=== PATIENT | male | born 1925 | race Caucasian/White ===

== ENCOUNTER 2017-01-07 14:50 | Emergency (ER) | payer OTHER ==
[~2017-01-07] VITALS: Ht 162.6 cm; Wt 62.9 kg
[~2017-01-07 14:50] MED LIST: AMLO-110 PO; ASPEC81 PO; CLC150 PO; CLTP PO; CMD2 PO; INSDGI SC; LCTX PO; METO25TA56 PO; PANT40TA PO; PRED-301 PO; SIMV40TA2 PO
[2017-01-07 15:00] VITALS: O2SAT 96; Ht 162.6 cm; Wt 62.9 kg
[2017-01-07 15:13] LABS: COMPLETE YES; EOS % 0.1 %; HEMATOCRIT 37.1 % (42-52); IG% 0.3 %; LYMPH % 4.8 %; LYMPH ABS # 0.75 K/uL (1.2-3.4); MEAN CELL VOLUME 95.4 fL (80-100); MEAN CORPUSCULAR HEMOGLOBIN 31.9 pg (25-34); MEAN CORPUSCULAR HGB CONC 33.4 g/dl (32-36); MEAN PLATELET VOLUME 11.2 fL (7.4-10.4); MONO % 3.8 %; PLATELET COUNT 283 K/uL (130-400); RED BLOOD COUNT 3.89 M/uL (4.7-6.1); WHITE BLOOD COUNT 15.64 K/uL (4.8-10.8)
[2017-01-07 15:21] LABS: PROTHROMBIN TIME (PATIENT) 10.6 SECONDS (9.0-12.0)
--- NOTE | 2017-01-07 15:28 | DIAGNOSTIC IMAGING REPORT ---
SINGLE VIEW CHEST CLINICAL HISTORY: Dyspnea. FINDINGS: An AP, portable, upright chest radiograph is compared to study dated 05/10/2009. The examination is degraded by portable technique and patient rotation. A 2-lead cardiac pacemaker partially obscures the left upper chest. This is new from 2008. A stent projects over the heart. The heart is enlarged and there is atherosclerotic calcification of the thoracic aorta. The pulmonary vasculature is noncongested. Chronic interstitial thickening is similar to previous. No airspace consolidation or large pleural effusion is identified. No pneumothorax is seen. The skeletal structures are osteopenic. Degenerative change is noted throughout the thoracic spine. Surgical clips project over the right axilla. IMPRESSION: 1. Cardiomegaly and cardiac pacemaker. There is no radiographic evidence of congestive failure. 2. No airspace consolidation or pleural effusion is seen. Electronically signed by: Rashel Mei M.D. 01/07/2017 3:27 PM Dictated Date/Time: 01/07/2017 3:25 PM
[2017-01-07 15:32] LABS: BUN/CREATININE RATIO 30.7 (10-20); CREATININE 0.87 mg/dl (0.60-1.40); POTASSIUM 4.5 mmol/L (3.5-5.1)
[2017-01-07 15:41] LABS: ALB/GLOB RATIO 0.8 (0.9-2); CKMB/CK RATIO 2.9 (0-3.0)
[2017-01-07] MEDS ORDERED: AMOX875T PO (16:16)
[2017-01-07] MEDS ORDERED: METF500T5 PO (16:16)
[2017-01-07] MEDS ORDERED: LISI40TA PO (16:16)
[2017-01-07] MEDS ORDERED: AMLO-114 PO (16:16)
[2017-01-07] MEDS ORDERED: ASPI325T39 PO (16:16)
[2017-01-07] MEDS ORDERED: HYDR12.55 PO (16:16)
[2017-01-07] MEDS ORDERED: METO25TA56 PO (16:16)
[2017-01-07] MEDS ORDERED: ATOR-22 PO (16:16)
[2017-01-07] MEDS ORDERED: NF656 TD (16:16)
[2017-01-07] MEDS ORDERED: OPTIRAY 320 IV PRN (17:15)
[2017-01-07] MEDS ORDERED: CEFTRIAXONE SOD INJ 1 GM ADDVIAL IV STA (17:55)
--- NOTE | 2017-01-07 18:01 | DIAGNOSTIC IMAGING REPORT ---
ADDENDUM ADDENDUM: The case was subsequently discussed with the admitting hospitalist. The patient's left carotid endarterectomy was reportedly performed 4 days previously, not one month ago as initially reported. The inflammatory changes and gas within the left neck are likely related to recent surgery. Superimposed infection would be impossible to exclude and clinical correlation will be required. All remaining findings are unchanged. Electronically signed by: Rashel Mei M.D. 01/07/2017 8:47 PM Dictated Date/Time: 01/07/2017 8:[address] ANGIOGRAM OF THE CHEST CLINICAL HISTORY: Dyspnea. COMPARISON STUDY: Chest x-ray dated 01/07/2017. TECHNIQUE: Following the IV administration of 75 cc of Optiray 320, CT angiogram of the chest was performed from the upper abdomen to the thoracic inlet utilizing the pulmonary embolus protocol. Images are reviewed in the axial, sagittal, and coronal planes. 3-D MIPS images are created and assessed. IV contrast was administered without complication. The examination is degraded by streak artifact from the patient's arms which could not be elevated above the chest as well as by motion artifact. CT DOSE: 316.14 mGy.cm FINDINGS: Thyroid: Imaged portions of the thyroid gland are normal in size and attenuation. Thoracic aorta: A stent is present within the ascending thoracic aorta and appear to cross the aortic valve. There is atherosclerotic calcification of the thoracic aorta, which is normal in caliber and demonstrates standard 3-vessel arch anatomy. No dissection is seen. Pulmonary vasculature: The pulmonary trunk is normal in caliber. There are no filling defects identified in main, lobar, or segmental pulmonary branches to suggest pulmonary embolus. Heart: A 2-lead cardiac pacemaker is present in the left chest wall. The heart is enlarged and without pericardial effusion. The coronary arteries are densely calcified. Lungs and pleural spaces: There is biapical scarring. Dependent airspace consolidation is seen bilaterally, left greater than right. No pleural effusion is seen. Peribronchial thickening is noted in the lower lobes. Intraluminal secretions are present within the lower lobe airways. A 3 mm right lower lobe pulmonary nodule is seen on image #128. Mediastinum: There is no mediastinal lymphadenopathy. There are small calcification containing mediastinal lymph nodes. Small foci of gas are present within the anterior mediastinum. Barbara: Clear. Axillae: There is no axillary lymphadenopathy. Lower neck: There is infiltration of the deep soft tissues identified in the left lower neck which extends to the thoracic inlet. There are numerous foci of subcutaneous gas in this region. This appears to be centered around the carotid artery and jugular vein. There is also stranding around the visualized pharyngeal soft tissues. No organized fluid collection is seen. Upper abdomen: There is a tiny hiatal hernia. Partially visualized upper abdominal viscera is otherwise within normal limits. Skeletal structures: The skeletal structures are osteopenic. Degenerative changes noted throughout the thoracic spine. No lytic or blastic bony lesions are seen. IMPRESSION: 1. There is no evidence of pulmonary embolus in the main, lobar, or segmental pulmonary arteries. 2. Cardiomegaly. A stent is present in the ascending thoracic aorta and appears to cross the aortic valve. Correlation with the patient's surgical/cardiac history will be required. 3. There is bibasilar dependent airspace consolidation this could represent atelectasis, developing pneumonia, and/or aspiration pneumonitis. Aspiration pneumonitis is favored. Clinical correlation will be required. 4. There is infiltration of the deep soft tissues in the left neck with foci of subcutaneous gas. Inflammation also extends around the visualized pharyngeal soft tissues comments, and appears to be centered around the left internal jugular vein and the left internal carotid artery. The patient reportedly underwent carotid endarterectomy one month previously. Subcutaneous gas would be expected to have resolved after one months time, and although this could potentially represent postoperative change the findings are concerning for soft tissue infection of the neck. No organized fluid collection is clearly seen. Clinical correlation will be essential. 5. Cardiomegaly and cardiac pacemaker. 6. No pleural effusion is seen. 7. Additional findings as above. Findings were discussed with Dr. Garcia in the emergency department at the time of interpretation. Electronically signed by: Rashel Mei M.D. 01/07/2017 5:59 PM Dictated Date/Time: 01/07/2017 5:42 PM
[2017-01-07 18:08] LABS: URINE APPEARANCE CLEAR (CLEAR); URINE BILIRUBIN NEG (NEG); URINE COLOR YELLOW; URINE EPITHELIAL CELL AUTO >30 /lpf (0-5); URINE NITRITE NEG (NEG); URINE SPECIFIC GRAVITY 1.028 (1.000-1.030); UROBILINOGEN NEG (NEG)
[2017-01-07 18:13] LABS: MANUAL MICROSCOPIC REQUIRED? NO; REVIEW REQ? YES
--- NOTE | 2017-01-07 18:19 | DIAGNOSTIC IMAGING REPORT ---
KUB CLINICAL HISTORY: Constipation. FINDINGS: 2 AP supine abdominal radiographs are obtained. No prior studies are available for comparison at the time of dictation. There is a nonobstructed abdominal bowel gas pattern. There is severe constipation. No evidence of intraperitoneal free air is seen on these supine views. Excreted IV contrast fills the bladder. Pelvic phleboliths are noted. The skeletal structures are osteopenic. There is lumbosacral spondylosis. The bony pelvis appears intact. Arthritic change is noted in the hips. Cardiomegaly, pacemaker leads, and an aortic stent are noted in the lower chest. IMPRESSION: Severe constipation. Electronically signed by: Rashel Mei M.D. 01/07/2017 6:17 PM Dictated Date/Time: 01/07/2017 6:16 PM
[2017-01-07] MEDS ORDERED: ONDANSETRON INJ 2 MG/ML 2 ML VIAL IV PRN (19:45)
[2017-01-07] MEDS ORDERED: ACETAMINOPHEN 325 MG TAB PO PRN (19:45)
--- NOTE | 2017-01-07 20:16 | Progress Note ---
Progress Note Date of Service January 07, 2017. Progress Note ATTENDING ADDENDUM care coordinated with MARICARMEN Munson please refer to her notes for full details, I agree with her notes patient seen and examined, records reviewed by myself as well on exam, patient seen with daughters at bedside patient alert, oriented x 3, appears weak but comfortable overall denies active shortness of breath, chest pain has some pain on the left neck worse with movement noted to have low grade fever at [facility] 01/06/17, WBC 17k daughter report area of the incision site is more swollen and erythema is expanding no other symptoms VS noted and reviewed oriented x 3, not in distress, speaks in sentences with no effort nor accessory muscle use normal rate, regular rhythm, no murmurs mild rales bilateral bases non distended, soft, nontender no bipedal edema, erythema, warmth right sided weakness WBC 15k Crea 0.8 CT chest: no PE discussed with Radiologist Dr. Mei: soft tissue infiltration with gas around L Carotid Artery, cannot distinguish between infection vs. post op inflammation ASSESSMENT/PLAN> POSSIBLE INFECTION OF THE LEFT NECK S/P LEFT CEA - due to clinical and CT neck findings, recommend evaluation at [facility] for possible post op site infection - Vanc and Zosyn IV ordered - discussed with patient and family, they are agreeable and comfortable with transfer to [place] BILATERAL PNEUMONIA possible Aspirin Vanc + Zosyn IV ordered other diagnoses and plan of care as per MARICARMEN Munson's notes Felix Patricio MD
[2017-01-07] MEDS ORDERED: VANCOMYCIN INJ 1,500 MG in SODIUM CHLORIDE 0.9% 500ML 500 ML IV STA (20:17)
[2017-01-07] MEDS ORDERED: PIPERACILLIN/TAZOBACTAM 4.5 GM/100ML D5W IV STA (20:20)
[2017-01-07] MEDS ORDERED: VANCOMYCIN CONSULT ACTIVE SCH (20:23)
[2017-01-07] MEDS ORDERED: PIPERACILL/TAZOBAC CONSULT ACTIVE SCH (20:23)
--- NOTE | 2017-01-07 20:44 | Medical Consult ---
Consultation Date of Consultation: January 07, 2017. Attending Physician: Dr. 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 Patient underwent left carotid endarterectomy on 01/03/17 at [facility]. Daughter states the following day patient had SOB/ wheezing and developed a cough nonproductive. Patient resides at [facility] where he developed a fever of 100.4 two nights ago. He was seen by Myriam Barnett PA-C yesterday and started on Augmentin. Today patient was brought to the ER for shortness of breath. Since the surgery patient has been transferred via lift to prevent straining on the L side given his R sided weakness. Daughter states erythema and swelling on left neck has been increasing. Has pain in the left neck if he turns his head. Patient was nauseous and vomiting yesterday and today. Daughter states he has aspirated on liquids in the past, no known episode occurred in past few days. He f/w speech therapy and is on regular diet with thin liquids. Patient reports no BM for 5-6 days with associated diffuse abdominal pressure. Was given milk of magnesia, dulcolax suppository, and fleet enema yesterday with minimal stool. He is passing gas. Pt reports sacral area pain x 2 weeks after falling. Daughter states he had an X-ray at [facility] after the fall which was negative. He denies fatigue, rhinorrhea, sore throat, chest pain, dysuria, frequency. Patient is requiring oxygen 2-2.5 L NC in ER. Not on oxygen at SNF. Past Medical/Surgical History Medical Problems: (1) CAD (coronary artery disease) Permanent Comment: Cath 05/2016- The coronary arteries have diffuse minor irregularities Status: Chronic (2) Carotid stenosis Status: Chronic (3) DM type 2 (diabetes mellitus, type 2) Status: Chronic (4) Dyslipidemia Status: Chronic (5) HTN (hypertension) Status: Chronic (6) Hyperlipidemia Status: Chronic (7) PMR (polymyalgia rheumatica) Status: Chronic (8) Right hemiplegia Status: Chronic (9) Skin cancer Status: Chronic Surgical Problems: (1) S/P carotid endarterectomy Permanent Comment: 01/03/17 Status: Chronic (2) S/P placement of cardiac pacemaker Status: Chronic (3) S/P TAVR (transcatheter aortic valve replacement) Status: Chronic (4) Status post Mohs surgery Status: Chronic Family History Noncontributory due to age. Social History Smoking Status: Former Smoker (quit 40 years ago) Alcohol Use: none Housing Status: retirement ([facility]) Allergies Coded Allergies: No Known Allergies (Verified , NONE, 01/07/17) Home Medications Reported Home Medications Medications Dose Route/Sig Max Daily Dose Days Date Category Dose Instructions Lopressor (Metoprolol Tartrate) 25 Mg Tab 25 Mg PO BID 01/07/17 Reported [id number] Glucophage Er (Metformin HCl) 500 Mg Tab 500 Mg PO BID 01/07/17 Reported [id number] Zestril (Lisinopril) 40 Mg Tab 40 Mg PO QAM 01/07/17 Reported Lidoderm Patch 5% (Lidocaine) 1 Ea Tdsy 1 Patch TD QAM 01/07/17 Reported APPLY PATCH TO RIGHT SIDE AND LEFT SIDE 0800 Hydrochlorothiazide 12.5 Mg Tab 1 Tab PO QAM 01/07/17 Reported Augmentin 875-125 mg (Amoxicillin & Pot Clavulanate) 1 Tab Tab 1 Tab PO BID 01/07/17 Reported [id number]. 01-06-17. ENDS 01-16-17 Lipitor (Atorvastatin Calcium) 20 Mg Tab 4 Tab PO HS 01/07/17 Reported Aspirin Ec (Aspirin) 325 Mg Tab 325 Mg PO QAM 01/07/17 Reported Norvasc (Amlodipine Besylate) 10 Mg Tab 10 Mg PO QAM 01/07/17 Reported Current Inpatient Medications Current Inpatient Medications Medications (Trade) Dose Ordered Sig/Xenia Route Start Time Stop Time Status Last Admin Dose Admin Ioversol (Optiray 320) 100 ml UD PRN IV 01/07/17 17:15 01/11/17 17:14 Heparin Sodium (Porcine) (Heparin Sq 5000 Unit/0.5ml) 5,000 unit Q12 SQ 01/07/17 21:00 02/06/17 20:59 UNV Acetaminophen (Tylenol Tab) 650 mg Q4H PRN PO 01/07/17 19:45 02/06/17 19:44 UNV Ondansetron HCl (Zofran Inj) 4 mg Q6H PRN IV 01/07/17 19:45 02/06/17 19:44 UNV Miscellaneous Information (Pharmacy Consult) 1 ea NOW STAT N/A 01/07/17 19:58 01/07/17 19:59 UNV Miscellaneous Information (Pharmacy Consult) 1 ea NOW STAT N/A 01/07/17 19:58 01/07/17 19:59 UNV Review of Systems Ten systems reviewed and negative except as noted in HPI. Physical Exam Date Time Temp Pulse Resp B/P Pulse Ox O2 Delivery O2 Flow Rate FiO2 01/07/17 18:54 36.9 78 16 134/68 94 Nasal Cannula 2.0 01/07/17 17:20 72 16 153/80 94 Nasal Cannula 2.0 01/07/17 16:11 74 16 130/77 95 Nasal Cannula 2.0 01/07/17 15:00 96 Nasal Cannula 2.0 01/07/17 15:00 85 01/07/17 15:00 90 Room Air 01/07/17 15:00 96 Nasal Cannula 2.0 01/07/17 15:00 36.9 78 16 152/84 90 Room Air General Appearance: WD/WN, no apparent distress, + pertinent finding (alert elderly male, daughters at bedside) Head: normocephalic, atraumatic Eyes: normal inspection, PERRL, EOMI ENT: pharynx normal, + pertinent finding (hard of hearing) Neck: trachea midline, + pertinent finding (erythema, induration, swelling left neck medial to surgical incision.) Respiratory/Chest: no respiratory distress, no accessory muscle use, + crackles (right base), + pertinent finding (saturating 90% on 2.5 liters) Cardiovascular: regular rate, rhythm, no murmur Abdomen/GI: normal bowel sounds, non tender, soft Back: + pertinent finding (no tenderness on palpation of lumbar or sacral areas ) Extremities/Musculoskelatal: no calf tenderness, no pedal edema Neurologic/Psych: alert, normal mood/affect, oriented x 3, + pertinent finding (chronic right arm flaccid paralysis and right leg weakness from prior CVA- no change per daughter) Skin: + pertinent finding ( scattered ecchymosis on extremities. two tiny stage II ulcerations on buttocks. ) Laboratory Results Last 24 Hours Test 01/07/17 14:32 01/07/17 17:50 01/07/17 20:00 White Blood Count 15.64 K/uL Red Blood Count 3.89 M/uL Hemoglobin 12.4 g/dL Hematocrit 37.1 % Mean Corpuscular Volume 95.4 fL Mean Corpuscular Hemoglobin 31.9 pg Mean Corpuscular Hemoglobin Concent 33.4 g/dl Platelet Count 283 K/uL Mean Platelet Volume 11.2 fL Neutrophils (%) (Auto) 91.0 % Lymphocytes (%) (Auto) 4.8 % Monocytes (%) (Auto) 3.8 % Eosinophils (%) (Auto) 0.1 % Basophils (%) (Auto) 0.0 % Neutrophils # (Auto) 14.22 K/uL Lymphocytes # (Auto) 0.75 K/uL Monocytes # (Auto) 0.60 K/uL Eosinophils # (Auto) 0.02 K/uL Basophils # (Auto) 0.00 K/uL RDW Standard Deviation 49.5 fL RDW Coefficient of Variation 14.2 % Immature Granulocyte % (Auto) 0.3 % Immature Granulocyte # (Auto) 0.05 K/uL Prothrombin Time 10.6 SECONDS Prothromb Time International Ratio 1.0 Activated Partial Thromboplast Time 25.4 SECONDS Partial Thromboplastin Ratio 1.0 Sodium Level 140 mmol/L Potassium Level 4.5 mmol/L Chloride Level 100 mmol/L Carbon Dioxide Level 30 mmol/L Anion Gap 10.0 mmol/L Blood Urea Nitrogen 27 mg/dl Creatinine 0.87 mg/dl Est Creatinine Clear Calc Drug Dose 48.2 ml/min Estimated GFR () 88.7 Estimated GFR (Non- 76.5 BUN/Creatinine Ratio 30.7 Random Glucose 159 mg/dl Calcium Level 9.0 mg/dl Total Bilirubin 0.5 mg/dl Aspartate Amino Transf (AST/SGOT) 29 U/L Alanine Aminotransferase (ALT/SGPT) 24 U/L Alkaline Phosphatase 91 U/L Total Creatine Kinase 79 U/L Creatine Kinase MB 2.3 ng/ml Creatine Kinase MB Ratio 2.9 Troponin I 0.095 ng/ml Pro-B-Type Natriuretic Peptide 628 pg/ml Total Protein 6.4 gm/dl Albumin 2.8 gm/dl Globulin 3.6 gm/dl Albumin/Globulin Ratio 0.8 Urine Color YELLOW Urine Appearance CLEAR Urine pH 6.0 Urine Specific [place] 1.028 Urine Protein NEG Urine Glucose (UA) NEG Urine Ketones NEG Urine Occult Blood NEG Urine Nitrite NEG Urine Bilirubin NEG Urine Urobilinogen NEG Urine Leukocyte Esterase SMALL Urine WBC (Auto) 5-10 /hpf Urine RBC (Auto) 0-4 /hpf Urine Hyaline Casts (Auto) 1-5 /lpf Urine Epithelial Cells (Auto) >30 /lpf Urine Bacteria (Auto) 1+ Assessment & Plan ? LEFT NECK CELLULITIS/ POSTOP INFECTION S/[place] [facility] neck shows left neck infiltration of deep soft tissues with subcutaneous gas concerning for soft tissue infection Will give dose of IV Vancomycin and Zosyn Patient will be transferred to [facility] BILATERAL PNEUMONIA HCAP VS. possible aspiration Requiring oxygen 2-2.5 L NC; not on O2 at SNF Will give dose of Vancomycin and Zosyn NPO; recommend speech evaluation Patient is DNR per my discussion with the patient and his daughter Mignon Ahuja who is POA at bedside. Further recommendations as per [place] team [place] [facility] Patient seen in collaboration with Dr. Patricio. Please see his addendum.
[2017-01-07 20:58] LABS: CKMB/CK RATIO 2.6 (0-3.0)
[2017-01-07] MEDS ORDERED: HEPARIN SOD 5000 UNIT/0.5 ML CARP SQ SCH (21:00)
[2017-01-07 22:40] VITALS: TEMP 36.9
[2017-01-07] MEDS ORDERED: PIPERACILLIN/TAZOBACTAM 4.5 GM/100ML D5W ONE (23:24)
[2017-01-07 23:26] VITALS: BP 137/78; PULSE 81; O2SAT 96
--- NOTE | 2017-01-07 23:36 | EMERGENCY ROOM VISIT NOTE ---
History Report prepared by Hansel: Rubi Benites Under the Supervision of: Dr. Leonardo Garcia D.O. First contact with patient: 14:51 Stated Complaint: SHORTNESS OF BREATH History of Present Illness The patient is an 89 year old male who presents to the Emergency Room with complaints of an episode of being short of breath just prior to arrival. The patient states that he is experiencing weakness, coughing, vomiting and a fever. He denies coughing up any substances. The patient reports that he was at [facility] last week for a cardiac pacemaker placement and his carotid artery being cleaned out. He reports that he currently is at [facility] for rehab. The patient denies chest pain, leg swelling, and leg pain. He notes that he started a new medication yesterday. The patient also reports a history of a stroke. Source of History: patient Onset: prior to arrival Position: other (global) Quality: other (global) Timing: other (episode) Associated Symptoms: + cough, + fevers, + vomiting, + weakness, No chest pain Note: The patient denies leg swelling, leg pain, and coughing any substances up. Review of Systems See HPI for pertinent positives & negatives. A total of 10 systems reviewed and were otherwise negative. Past Medical & Surgical Medical Problems: (1) CAD (coronary artery disease) (2) Carotid stenosis (3) DM type 2 (diabetes mellitus, type 2) (4) Dyslipidemia (5) HTN (hypertension) (6) Hyperlipidemia (7) Hypoxia (8) PMR (polymyalgia rheumatica) (9) Pneumonia (10) Right hemiplegia (11) Skin cancer (12) Stroke Surgical Problems: (1) History of endarterectomy (2) S/P carotid endarterectomy (3) S/P placement of cardiac pacemaker (4) S/P TAVR (transcatheter aortic valve replacement) (5) Status post Mohs surgery Family History No pertinent family history Social History Smoking Status: Former Smoker Marital Status: Housing Status: lives with family Occupation Status: retired Current/Historical Medications Scheduled Amlodipine (Norvasc), 10 MG PO QAM Amoxicillin & Pot Clavulanate (Augmentin 875-125 mg), 1 TAB PO BID Aspirin (Aspirin Ec), 325 MG PO QAM Atorvastatin (Lipitor), 4 TAB PO HS Hydrochlorothiazide (Hydrochlorothiazide), 1 TAB PO QAM Lidocaine (Lidoderm Patch 5%), 1 PATCH TD QAM Lisinopril (Zestril), 40 MG PO QAM Metformin Hcl Er (Glucophage Er), 500 MG PO BID Metoprolol Tartrate (Lopressor) (Lopressor), 25 MG PO BID Allergies Coded Allergies: No Known Allergies (Verified , NONE, 01/07/17) Physical Exam Vital Signs Date Time Temp Pulse Resp B/P Pulse Ox O2 Delivery O2 Flow Rate FiO2 01/07/17 23:26 81 16 137/78 96 Nasal Cannula 3.0 01/07/17 22:40 36.9 74 16 140/69 95 Nasal Cannula 2.0 01/07/17 21:45 78 16 138/75 95 Nasal Cannula 2.0 01/07/17 20:30 37.0 87 14 141/72 94 Nasal Cannula 2.0 01/07/17 18:54 36.9 78 16 134/68 94 Nasal Cannula 2.0 01/07/17 17:20 72 16 153/80 94 Nasal Cannula 2.0 01/07/17 16:11 74 16 130/77 95 Nasal Cannula 2.0 01/07/17 15:00 96 Nasal Cannula 2.0 01/07/17 15:00 85 01/07/17 15:00 90 Room Air 01/07/17 15:00 96 Nasal Cannula 2.0 01/07/17 15:00 36.9 78 16 152/84 90 Room Air Physical Exam GENERAL: Patient is awake, alert, and in no acute distress. Patient is resting comfortably and non-anxious appearing. EYES: The conjunctivae are clear. The pupils are round and reactive. EARS, NOSE, MOUTH AND THROAT: The nose is without any evidence of any deformity. Mucous membranes are moist tongue is midline NECK: The neck is nontender and supple. Post operative sight noted over left carotid artery, there is swelling and ecchymosis. No draining or erythema noted. RESPIRATORY: Diminished throughout. Rales at both bases. CARDIOVASCULAR: Regular rate and rhythm noted. There is a systolic murmur suggested. No rubs or gallops normal S1 normal S2 GASTROINTESTINAL: The abdomen is soft. Bowel sounds are present in all quadrants. Abdomen is nontender MUSCULOSKELETAL/EXTREMITIES: There is no evidence of gross deformity full range of motion is noted in the hips and shoulders SKIN: There is no obvious evidence of any rash. There are no petechiae, pallor or cyanosis noted. Pedal edema bilaterally. NEUROLOGIC: Patient is awake alert and oriented x3 strength is symmetric patellar reflexes are 2+ bilaterally. Right sided weakness depreciated consistent with previous stroke history. Medical Decision & Procedures ER Provider Diagnostic Interpretation: Radiology results as stated below per my review and radiologist interpretation: SINGLE VIEW CHEST CLINICAL HISTORY: Dyspnea. FINDINGS: An AP, portable, upright chest radiograph is compared to study dated 05/10/2009. The examination is degraded by portable technique and patient rotation. A 2-lead cardiac pacemaker partially obscures the left upper chest. This is new from 2008. A stent projects over the heart. The heart is enlarged and there is atherosclerotic calcification of the thoracic aorta. The pulmonary vasculature is noncongested. Chronic interstitial thickening is similar to previous. No airspace consolidation or large pleural effusion is identified. No pneumothorax is seen. The skeletal structures are osteopenic. Degenerative change is noted throughout the thoracic spine. Surgical clips project over the right axilla. IMPRESSION: 1. Cardiomegaly and cardiac pacemaker. There is no radiographic evidence of congestive failure. 2. No airspace consolidation or pleural effusion is seen. Electronically signed by: Rashel Mei M.D. 01/07/2017 3:27 PM Dictated Date/Time: 01/07/2017 3:25 PM KUB CLINICAL HISTORY: Constipation. FINDINGS: 2 AP supine abdominal radiographs are obtained. No prior studies are available for comparison at the time of dictation. There is a nonobstructed abdominal bowel gas pattern. There is severe constipation. No evidence of intraperitoneal free air is seen on these supine views. Excreted IV contrast fills the bladder. Pelvic phleboliths are noted. The skeletal structures are osteopenic. There is lumbosacral spondylosis. The bony pelvis appears intact. Arthritic change is noted in the hips. Cardiomegaly, pacemaker leads, and an aortic stent are noted in the lower chest. IMPRESSION: Severe constipation. Electronically signed by: Rashel Mei M.D. 01/07/2017 6:17 PM Dictated Date/Time: 01/07/2017 6:[address] ANGIOGRAM OF THE CHEST CLINICAL HISTORY: Dyspnea. COMPARISON STUDY: Chest x-ray dated 01/07/2017. TECHNIQUE: Following the IV administration of 75 cc of Optiray 320, CT angiogram of the chest was performed from the upper abdomen to the thoracic inlet utilizing the pulmonary embolus protocol. Images are reviewed in the axial, sagittal, and coronal planes. 3-D MIPS images are created and assessed. IV contrast was administered without complication. The examination is degraded by streak artifact from the patient's arms which could not be elevated above the chest as well as by motion artifact. CT DOSE: 316.14 mGy.cm FINDINGS: Thyroid: Imaged portions of the thyroid gland are normal in size and attenuation. Thoracic aorta: A stent is present within the ascending thoracic aorta and appear to cross the aortic valve. There is atherosclerotic calcification of the thoracic aorta, which is normal in caliber and demonstrates standard 3-vessel arch anatomy. No dissection is seen. Pulmonary vasculature: The pulmonary trunk is normal in caliber. There are no filling defects identified in main, lobar, or segmental pulmonary branches to suggest pulmonary embolus. Heart: A 2-lead cardiac pacemaker is present in the left chest wall. The heart is enlarged and without pericardial effusion. The coronary arteries are densely calcified. Lungs and pleural spaces: There is biapical scarring. Dependent airspace consolidation is seen bilaterally, left greater than right. No pleural effusion is seen. Peribronchial thickening is noted in the lower lobes. Intraluminal secretions are present within the lower lobe airways. A 3 mm right lower lobe pulmonary nodule is seen on image #128. Mediastinum: There is no mediastinal lymphadenopathy. There are small calcification containing mediastinal lymph nodes. Small foci of gas are present within the anterior mediastinum. Barbara: Clear. Axillae: There is no axillary lymphadenopathy. Lower neck: There is infiltration of the deep soft tissues identified in the left lower neck which extends to the thoracic inlet. There are numerous foci of subcutaneous gas in this region. This appears to be centered around the carotid artery and jugular vein. There is also stranding around the visualized pharyngeal soft tissues. No organized fluid collection is seen. Upper abdomen: There is a tiny hiatal hernia. Partially visualized upper abdominal viscera is otherwise within normal limits. Skeletal structures: The skeletal structures are osteopenic. Degenerative changes noted throughout the thoracic spine. No lytic or blastic bony lesions are seen. IMPRESSION: 1. There is no evidence of pulmonary embolus in the main, lobar, or segmental pulmonary arteries. 2. Cardiomegaly. A stent is present in the ascending thoracic aorta and appears to cross the aortic valve. Correlation with the patient's surgical/cardiac history will be required. 3. There is bibasilar dependent airspace consolidation this could represent atelectasis, developing pneumonia, and/or aspiration pneumonitis. Aspiration pneumonitis is favored. Clinical correlation will be required. 4. There is infiltration of the deep soft tissues in the left neck with foci of subcutaneous gas. Inflammation also extends around the visualized pharyngeal soft tissues comments, and appears to be centered around the left internal jugular vein and the left internal carotid artery. The patient reportedly underwent carotid endarterectomy one month previously. Subcutaneous gas would be expected to have resolved after one months time, and although this could potentially represent postoperative change the findings are concerning for soft tissue infection of the neck. No organized fluid collection is clearly seen. Clinical correlation will be essential. 5. Cardiomegaly and cardiac pacemaker. 6. No pleural effusion is seen. 7. Additional findings as above. Findings were discussed with Dr. Garcia in the emergency department at the time of interpretation. Electronically signed by: Rashel Mei M.D. 01/07/2017 5:59 PM Dictated Date/Time: 01/07/2017 5:42 PM Laboratory Results 01/07/17 14:32 Red Blood Count 3.89, Mean Corpuscular Volume 95.4, Mean Corpuscular Hemoglobin 31.9, Mean Corpuscular Hemoglobin Concent 33.4, Mean Platelet Volume 11.2, Neutrophils (%) (Auto) 91.0, Lymphocytes (%) (Auto) 4.8, Monocytes (%) (Auto) 3.8, Eosinophils (%) (Auto) 0.1, Basophils (%) (Auto) 0.0, Neutrophils # (Auto) 14.22, Lymphocytes # (Auto) 0.75, Monocytes # (Auto) 0.60, Eosinophils # (Auto) 0.02, Basophils # (Auto) 0.00 01/07/17 14:32 Test 01/07/17 14:32 01/07/17 17:50 01/07/17 20:27 White Blood Count 15.64 K/uL (4.8-10.8) Red Blood Count 3.89 M/uL (4.7-6.1) Hemoglobin 12.4 g/dL (14.0-18.0) Hematocrit 37.1 % (42-52) Mean Corpuscular Volume 95.4 fL (80-100) Mean Corpuscular Hemoglobin 31.9 pg (25-34) Mean Corpuscular Hemoglobin Concent 33.4 g/dl (32-36) Platelet Count 283 K/uL (130-400) Mean Platelet Volume 11.2 fL (7.4-10.4) Neutrophils (%) (Auto) 91.0 % Lymphocytes (%) (Auto) 4.8 % Monocytes (%) (Auto) 3.8 % Eosinophils (%) (Auto) 0.1 % Basophils (%) (Auto) 0.0 % Neutrophils # (Auto) 14.22 K/uL (1.4-6.5) Lymphocytes # (Auto) 0.75 K/uL (1.2-3.4) Monocytes # (Auto) 0.60 K/uL (0.11-0.59) Eosinophils # (Auto) 0.02 K/uL (0-0.5) Basophils # (Auto) 0.00 K/uL (0-0.2) RDW Standard Deviation 49.5 fL (36.4-46.3) RDW Coefficient of Variation 14.2 % (11.5-14.5) Immature Granulocyte % (Auto) 0.3 % Immature Granulocyte # (Auto) 0.05 K/uL (0.00-0.02) Prothrombin Time 10.6 SECONDS (9.0-12.0) Prothromb Time International Ratio 1.0 (0.9-1.1) Activated Partial Thromboplast Time 25.4 SECONDS (21.0-31.0) Partial Thromboplastin Ratio 1.0 Anion Gap 10.0 mmol/L (3-11) Est Creatinine Clear Calc Drug Dose 48.2 ml/min Estimated GFR () 88.7 Estimated GFR (Non- 76.5 BUN/Creatinine Ratio 30.7 (10-20) Calcium Level 9.0 mg/dl (8.5-10.1) Total Bilirubin 0.5 mg/dl (0.2-1) Aspartate Amino Transf (AST/SGOT) 29 U/L (15-37) Alanine Aminotransferase (ALT/SGPT) 24 U/L (12-78) Alkaline Phosphatase 91 U/L (45-117) Pro-B-Type Natriuretic Peptide 628 pg/ml (0-1800) Total Protein 6.4 gm/dl (6.4-8.2) Albumin 2.8 gm/dl (3.4-5.0) Globulin 3.6 gm/dl (2.5-4.0) Albumin/Globulin Ratio 0.8 (0.9-2) Urine Color YELLOW Urine Appearance CLEAR (CLEAR) Urine pH 6.0 (4.5-7.5) Urine Specific [place] 1.028 (1.000-1.030) Urine Protein NEG (NEG) Urine Glucose (UA) NEG (NEG) Urine Ketones NEG (NEG) Urine Occult Blood NEG (NEG) Urine Nitrite NEG (NEG) Urine Bilirubin NEG (NEG) Urine Urobilinogen NEG (NEG) Urine Leukocyte Esterase SMALL (NEG) Urine WBC (Auto) 5-10 /hpf (0-5) Urine RBC (Auto) 0-4 /hpf (0-4) Urine Hyaline Casts (Auto) 1-5 /lpf (0-5) Urine Epithelial Cells (Auto) >30 /lpf (0-5) Urine Bacteria (Auto) 1+ (NEG) Total Creatine Kinase 68 U/L (39-308) Creatine Kinase MB 1.8 ng/ml (0.5-3.6) Creatine Kinase MB Ratio 2.6 (0-3.0) Troponin I 0.103 ng/ml (0-0.045) Chemistry Specimen Hemolysis Laboratory results per my review. Medications Administered Medications (Trade) Dose Ordered Sig/Xenia Route Start Time Stop Time Status Last Admin Dose Admin Ceftriaxone Sodium 1 gm 1 gm NOW STAT IV 01/07/17 17:55 01/07/17 17:57 DC 01/07/17 18:53 1 GM Vancomycin HCl/ Sodium Chloride (Vancomycin Inj/ Nss 500ml) 530 ml @ 200 mls/hr NOW STAT IV 01/07/17 20:17 01/07/17 22:55 DC 01/07/17 20:29 200 MLS/HR Piperacillin Sod/ Tazobactam Sod (Zosyn Iv) 4.5 gm NOW STAT IV 01/07/17 20:20 01/07/17 20:21 DC 01/07/17 23:26 4.5 GM ECG Indication: SOB/dyspnea Rate (beats per minute): 78 Rhythm: other (atrial sensed pacemaker) Findings: other (no PVC, nonnative beats noted) Comparison ECG Date: 05/13/2009 Change: Pacemaker is new. ED Course 1452: The patient was evaluated in room C9. A complete history and physical examination were performed. 1650: I discussed the case with the daughter and she is concerned about her father. We are going to run a few more tests. 1754: Ordered Rocephin Inj 1 gm IV. 1809: I reevaluated the patient and he is resting comfortably. 1827: I discussed the patient's case with Dr. Munson. The patient will be evaluated for further management. 2018: The patient would like to be transferred to [facility]. I discussed his case with Dr. Alba. The patient will be evaluated for further evaluation at their facility. Medical Decision Differential diagnosis: Etiologies such as infections, reactive airway disease, pneumonia, pneumothorax , COPD, CHF, cardiac ischemia, pulmonary embolism, musculoskeletal, gastrointestinal, as well as others were entertained. Nursing notes reviewed. Additional history is obtained from the patient's family members. The patient is an 89-year-old male who presented to emergency department for an evaluation of shortness of breath. The patient reportedly had a low-grade fever. He was started on antibiotics yesterday and the family thinks it was secondary to a presumed pneumonia. The patient is also status post carotid endarterectomy at [facility]. The patient's surgical site appears indurated. The patient's CAT scan of his chest was obtained to rule out pulmonary embolism given the patient's symptoms but it showed abnormalities around the left carotid endarterectomy surgical site. I discussed the patient's laboratory and radiographic studies with him. I also [facility] his [facility] Because the patient is recently post operative they recommended we discuss his case with [facility]. I discussed this case with the vascular surgeon. They've agreed to accept the patient in transfer for further management and disposition. The patient was treated with IV antibiotic. He was placed on supplemental ox and. Consults Time Called: 1818 Consulting Physician: Dr. Charlotte Munson Returned Call: 1827 I discussed the patient's case with Dr. Munson. The patient will be evaluated for further management. Additional Consults: Time Called: 2011 Consulted Physician: Dr. Alba Returned Call: 2017 Additional Comments: The patient would like to be transferred to [facility]. I discussed his case with Dr. Alba. The patient will be evaluated for further evaluation at their facility. Impression Primary Impression: Pneumonia Additional Impressions: SOB (shortness of breath) Status post carotid endarterectomy Scribe Attestation The scribe's documentation has been prepared under my direction and personally reviewed by me in its entirety. I confirm that the note above accurately reflects all work, treatment, procedures, and medical decision making performed by me. Departure Information Dispostion Transfer Acute Care Facility Problem Qualifiers Primary Impression: Pneumonia Pneumonia type: due to unspecified organism Laterality: unspecified laterality Lung location: unspecified part of lung Qualified Codes: J18.9 - Pneumonia, unspecified organism
== END 2017-01-07 23:29 | disposition short-term general hospital (02) ==
LOC: CANRESERV → ENRESERVDT → ENRESERVTM → EDBD 14:50 → C.EDC 14:57 → CANBEDREQ 21:32 → C.EDC 23:29
DX: J18.9 Pneumonia, unspecified organism (principal); R06.02 Shortness of breath; Z98.890 Other specified postprocedural states; E11.9 Type 2 diabetes mellitus without complications; I10 Essential (primary) hypertension; E78.5 Hyperlipidemia, unspecified; I25.10 Atherosclerotic heart disease of native coronary artery without angina pectoris; M35.3 Polymyalgia rheumatica; Z82.3 Family history of stroke; Z85.828 Personal history of other malignant neoplasm of skin; Z87.891 Personal history of nicotine dependence; Z95.0 Presence of cardiac pacemaker; Z79.82 Long term (current) use of aspirin; Z79.84 Long term (current) use of oral hypoglycemic drugs; Z79.899 Other long term (current) drug therapy

== ENCOUNTER → 2017-02-13 | Outpatient (CLI) | payer OTHER ==
[~2017-02-13] MED LIST changes: +ACET-1311 PO; -AMLO-110 PO; +AMLO-114 PO; +AMOX875T PO; -ASPEC81 PO; +ASPI325T39 PO; +ATOR-22 PO; +CHOL1000 PO; -CLC150 PO; -CLTP PO; -CMD2 PO; +DOCU100C31 PO; +HYDR12.55 PO; -INSDGI SC; -LCTX PO; +LISI40TA PO; +METF500T5 PO; +NF656 TD; -PANT40TA PO; +POTA10CA28 PO; +RXC/5 PO; -SIMV40TA2 PO; +TRAM-10 PO
--- NOTE | 2017-02-13 09:57 | DIAGNOSTIC IMAGING REPORT ---
DOUBLE CONTRAST UPPER GI SERIES CLINICAL HISTORY: Nausea and vomiting. Constipation diarrhea. Weight loss. COMPARISON STUDY: Chest CT dated 01/07/2017. TECHNIQUE: A standard air contrast upper GI series was initiated. Several spot images of the esophagus were obtained. The examination was discontinued due to aspiration. FINDINGS: The patient swallowed barium without difficulty. There was aspiration with delayed cough and the examination was discontinued at that time. The esophagus appears morphologically normal. No large hiatal hernia is seen. Pacemaker leads are noted, and there is a stent projecting over the heart.. Fluoroscopy time: 0.5 minutes. Fluoroscopic images: 6 IMPRESSION: 1. There was aspiration with delayed cough. The examination was discontinued at that time. 2. The esophagus appears morphologically normal on the acquired views. Electronically signed by: Rashel Mei M.D. 02/13/2017 9:55 AM Dictated Date/Time: 02/13/2017 9:53 AM
== END | disposition home or self-care (01) ==
LOC: C.RAD 09:02
PROVIDERS: ATTEND Physician Assistant
DX: R11.11 Vomiting without nausea (principal)

== ENCOUNTER 2017-04-06 13:28 | Emergency (ER) | payer OTHER ==
[~2017-04-06] VITALS: Ht 162.6 cm; Wt 66.9 kg
[~2017-04-06 13:28] MED LIST changes: -ACET-1311 PO; -CHOL1000 PO; -DOCU100C31 PO; -POTA10CA28 PO; -PRED-301 PO; -RXC/5 PO; -TRAM-10 PO
[2017-04-06 13:34] VITALS: TEMP 36.8; Ht 162.6 cm; Wt 66.9 kg
--- NOTE | 2017-04-06 14:05 | EMERGENCY ROOM VISIT NOTE ---
History Report prepared by Hansel: Kings Harman Under the Supervision of: Dr. Renzo Wagoner M.D. First contact with patient: 13:50 Chief Complaint: FALL Stated Complaint: FALL/ EAR PAIN/CUT History of Present Illness The patient is an 89 year old male who presents to the Emergency Room with complaints of a sudden mechanical fall that occurred prior to arrival today. Per the patient's daughter, the patient lives at [facility] currently for rehab after a stroke that occurred in November. Ever since the stroke, the patient has had right-sided weakness, including only 10% of sensation in his right arm. Per the patient's daughter, the patient was visiting the family's home, and was going to the bathroom, and was receiving help getting from the wheelchair to the toilet. At that point, the patient did not want any more help, so the patient's daughter left the bathroom. Quickly thereafter, the patient tried to pull his pants down and fell onto the side of the bathtub. The patient states that he hit his right ear on the side of the tub, and has had persistent pain there ever since. Per the patient's daughter, the patient was found on the floor with his glasses off, and the hearing aid on the right side out. The patient denies any loss of consciousness, nausea, vomiting, headache, dizziness , chest pain, neck pain, back pain, abdominal pain, or leg pain. Per the patient 's daughter, the patient is on Aspirin daily but no other blood thinners. The patient is unsure of the date of his last tetanus shot. Source of History: patient, family (daughter) Onset: Prior to arrival today Position: other (global - mechanical fall) Quality: other (fell onto side of bathtub) Timing: other (sudden) Associated Symptoms: No LOC, No headache, No neck pain, No chest pain, No nausea, No vomiting, No abdominal pain, No back pain Note: Associated symptoms: Right ear pain. Denies dizziness, or leg pain. Review of Systems See HPI for pertinent positives and negatives. A total of ten systems were reviewed and were otherwise negative. Past Medical & Surgical Medical Problems: (1) CAD (coronary artery disease) (2) Carotid stenosis (3) DM type 2 (diabetes mellitus, type 2) (4) Dyslipidemia (5) HTN (hypertension) (6) Hyperlipidemia (7) Hypoxia (8) PMR (polymyalgia rheumatica) (9) Pneumonia (10) Right hemiplegia (11) Skin cancer (12) Stroke Surgical Problems: (1) History of endarterectomy (2) S/P carotid endarterectomy (3) S/P placement of cardiac pacemaker (4) S/P TAVR (transcatheter aortic valve replacement) (5) Status post Mohs surgery Family History No pertinent family history Social History Smoking Status: Never Smoker Marital Status: Housing Status: lives with family Occupation Status: retired Current/Historical Medications Scheduled Amlodipine (Norvasc), 10 MG PO QAM Aspirin (Aspirin Ec), 325 MG PO QAM Atorvastatin (Lipitor), 40 MG PO HS Cholecalciferol (Vitamin D3), 1,000 TAB PO HS Docusate Sodium (Docusate Sodium), 100 MG PO BID Hydrochlorothiazide (Hydrochlorothiazide), 1 TAB PO QAM Lisinopril (Zestril), 40 MG PO QAM Metformin Hcl Er (Glucophage Er), 500 MG PO QAM Metoprolol Tartrate (Lopressor) (Lopressor), 25 MG PO BID Potassium Chloride (Micro-K Ext Rel), 20 MEQ PO DAILY Prednisone (Prednisone), 5 MG PO DAILY Scheduled PRN Acetaminophen (Tylenol), 650 MG PO Q4 PRN for Pain Oxycodone HCl (Oxycodone HCl), 5 MG PO Q4 PRN for Pain Tramadol (Ultram), 50 MG PO Q4H PRN for Pain Allergies Coded Allergies: No Known Allergies (Verified , NONE, 04/06/17) Physical Exam Vital Signs Date Time Temp Pulse Resp B/P (MAP) Pulse Ox O2 Delivery O2 Flow Rate FiO2 04/06/17 17:59 76 20 162/72 96 04/06/17 13:34 36.8 70 20 168/75 95 Room Air Physical Exam GENERAL: Awake, alert, well-appearing, in no distress HENT: Right upper auricular skin tear with minute laceration, hemostatic, otherwise normocephalic, atraumatic. Oropharynx unremarkable. EYES: Normal conjunctiva. Sclera non-icteric. NECK: Supple. No nuchal rigidity. FROM. No JVD. RESPIRATORY: Clear to auscultation. CARDIAC: Regular rate, normal rhythm. Extremities warm and well perfused. Pulses equal. ABDOMEN: Soft, non-distended. No tenderness to palpation. No rebound or guarding. No masses. RECTAL: Deferred. MUSCULOSKELETAL: Right arm in sling at baseline. 1+ motor at baseline. Ecchymosis to right shoulder, humerus, elbow, and forearm, but exam limited to decreased sensation at baseline. Chest examination reveals no tenderness. The back is symmetrical on inspection without obvious abnormality. There is no CVA tenderness to palpation. . LOWER EXTREMITIES: Calves are equal size bilaterally and non-tender. No edema. No discoloration. NEURO: Normal sensorium. 1+ motor of right arm at baseline. SKIN: No rash or jaundice noted. Medical Decision & Procedures ER Provider Diagnostic Interpretation: Radiology results as stated below per my review and radiologist interpretation: CT SCAN OF THE BRAIN WITHOUT IV CONTRAST CLINICAL HISTORY: Headache. Fall. COMPARISON STUDY: CT of the brain dated 05/11/2009. TECHNIQUE: Unenhanced axial CT scan of the brain is performed from the vertex to the skull base. CT DOSE: 1088.69 mGy.cm FINDINGS: Brain parenchyma: There are age-related involutional changes noting moderate to advanced patchy subcortical and periventricular microangiopathic change. There is no hemorrhage, mass effect, or evidence of acute territorial ischemia by CT criteria. Linear calcifications in the right cerebellar hemisphere is again noted. Nava-white matter is preserved. No extra-axial fluid collection is seen. Ventricles, sulci, cisterns: Prominent secondary to involutional change. Intracranial vasculature: There is atherosclerotic calcification of the cavernous carotid and vertebral arteries. Calvarium: The skeletal structures are osteopenic. No depressed calvarial fracture is seen. Sinuses and mastoids: The visualized paranasal sinuses are clear. The mastoid air cells are well pneumatized. Orbits: The bony orbits are grossly intact. There are bilateral ocular lens implants. IMPRESSION: There is no hemorrhage, mass effect, or evidence of acute territorial ischemia by CT criteria. Electronically signed by: Rashel Mei M.D. 04/06/2017 2:53 PM Dictated Date/Time: 04/06/2017 2:[address] SCAN OF THE CERVICAL SPINE CLINICAL HISTORY: Fall. COMPARISON STUDY: No prior studies are available for comparison at the time of dictation. TECHNIQUE: CT scan of the cervical spine is performed from the skull base to the upper thoracic spine. Images are reviewed in the axial, sagittal, and coronal planes. IV contrast was not administered for this examination. A dose lowering technique was utilized adhering to the principles of ALARA. CT DOSE: Reported separately under the concurrently performed CT scan of the brain. FINDINGS: Skeletal structures: The skeletal structures are osteopenic. There is no evidence of fracture or subluxation involving the cervical spine. Vertebral body height and alignment are maintained. There is incomplete bony fusion of the posterior ring of C1, likely on a congenital basis. The odontoid process and lateral masses are intact. The atlantoaxial articulation is preserved noting advanced productive degenerative change. The spinous processes appear intact. Anterior osteophytes are seen throughout. There is advanced multilevel cervical spondylosis. Uncovertebral and facet arthropathy are seen at most levels. Intervertebral discs: There is moderate disc space narrowing at C5-C6 and C6-C7. Mild disc space narrowing is seen at the remaining cervical levels. Central canal: Posterior disc osteophyte complexes at C3-C4, C5-C6, and C6-C7 likely contributes to acquired compromise of the central canal. Soft tissues: The prevertebral and paraspinous soft tissues are within normal limits. Pacemaker leads are noted in the left axilla. There is atherosclerotic calcification of the carotid bulbs. Calvarium: The visualized calvarium at the skull base appears intact. Brain parenchyma: Partially visualized brain parenchyma the skull base is within normal limits noting age-related involutional change. Sinuses and mastoids: The visualized paranasal sinuses are clear. The mastoid air cells are well pneumatized. Lung apices: Apical scarring is observed. Partially imaged upper lobe lung parenchyma is otherwise clear as visualized. IMPRESSION: 1. There is no evidence of fracture or subluxation involving the cervical spine. 2. Osteopenia and spondylotic change as above. Electronically signed by: Rashel Mei M.D. 04/06/2017 3:00 PM Dictated Date/Time: 04/06/2017 2:55 PM RIGHT SHOULDER MIN 2 VIEWS ROUTINE CLINICAL HISTORY: Right shoulder pain and swelling following fall. COMPARISON: None FINDINGS: Alignment of the right shoulder is anatomic. There is no acute fracture. There is moderate arthritis of the acromioclavicular and glenohumeral joints. There are right axillary surgical clips. Pacer leads and prosthetic cardiac valve are incidentally noted. IMPRESSION: No acute fracture or dislocation of the right shoulder. Electronically signed by: Gustavo Cash M.D. 04/06/2017 3:33 PM Dictated Date/Time: 04/06/2017 3:32 PM RIGHT ELBOW 2 VIEWS, RIGHT FOREARM 2 VIEWS ROUTINE, RIGHT HUMERUS MIN 2 VIEWS ROUTINE HISTORY: 89 years-old Male FALL Right COMPARISON: None available TECHNIQUE: 3 views of the right elbow, 2 views the right forearm and 2 views of the right humerus FINDINGS: Humerus: Moderate glenohumeral and, clavicular osteoarthritis is noted. The bones are mildly demineralized. Surgical clips are seen within the right axilla. Imaged right lung farris are clear. No acute fracture or dislocation is identified. Elbow: Moderate degenerative spurring is noted about the elbow. Additional spurring is noted about the biceps tuberosity of the radius. There is no acute fracture or dislocation. No large joint effusion or radiopaque foreign body. Forearm: Radial head appears intact. There is no acute fracture or dislocation identified. The ulna also appears intact. Soft tissues are unremarkable. Degenerative changes are seen about the wrist and carpus. IMPRESSION: 1. No acute bony abnormality of the right humerus, elbow or forearm. 2. Degenerative changes about the shoulder, elbow and wrist. The above report was generated using voice recognition software. It may contain grammatical, syntax or spelling errors. Electronically signed by: Richard Pillai M.D. 04/06/2017 3:35 PM Dictated Date/Time: 04/06/2017 3:32 PM RIGHT ELBOW 2 VIEWS, RIGHT FOREARM 2 VIEWS ROUTINE, RIGHT HUMERUS MIN 2 VIEWS ROUTINE HISTORY: 89 years-old Male FALL Right COMPARISON: None available TECHNIQUE: 3 views of the right elbow, 2 views the right forearm and 2 views of the right humerus FINDINGS: Humerus: Moderate glenohumeral and, clavicular osteoarthritis is noted. The bones are mildly demineralized. Surgical clips are seen within the right axilla. Imaged right lung farris are clear. No acute fracture or dislocation is identified. Elbow: Moderate degenerative spurring is noted about the elbow. Additional spurring is noted about the biceps tuberosity of the radius. There is no acute fracture or dislocation. No large joint effusion or radiopaque foreign body. Forearm: Radial head appears intact. There is no acute fracture or dislocation identified. The ulna also appears intact. Soft tissues are unremarkable. Degenerative changes are seen about the wrist and carpus. IMPRESSION: 1. No acute bony abnormality of the right humerus, elbow or forearm. 2. Degenerative changes about the shoulder, elbow and wrist. The above report was generated using voice recognition software. It may contain grammatical, syntax or spelling errors. Electronically signed by: Richard Pillai M.D. 04/06/2017 3:35 PM Dictated Date/Time: 04/06/2017 3:32 PM RIGHT ELBOW 2 VIEWS, RIGHT FOREARM 2 VIEWS ROUTINE, RIGHT HUMERUS MIN 2 VIEWS ROUTINE HISTORY: 89 years-old Male FALL Right COMPARISON: None available TECHNIQUE: 3 views of the right elbow, 2 views the right forearm and 2 views of the right humerus FINDINGS: Humerus: Moderate glenohumeral and, clavicular osteoarthritis is noted. The bones are mildly demineralized. Surgical clips are seen within the right axilla. Imaged right lung farris are clear. No acute fracture or dislocation is identified. Elbow: Moderate degenerative spurring is noted about the elbow. Additional spurring is noted about the biceps tuberosity of the radius. There is no acute fracture or dislocation. No large joint effusion or radiopaque foreign body. Forearm: Radial head appears intact. There is no acute fracture or dislocation identified. The ulna also appears intact. Soft tissues are unremarkable. Degenerative changes are seen about the wrist and carpus. IMPRESSION: 1. No acute bony abnormality of the right humerus, elbow or forearm. 2. Degenerative changes about the shoulder, elbow and wrist. The above report was generated using voice recognition software. It may contain grammatical, syntax or spelling errors. Electronically signed by: Richard Pillai M.D. 04/06/2017 3:35 PM Dictated Date/Time: 04/06/2017 3:32 PM Medications Administered Medications (Trade) Dose Ordered Sig/Xenia Route Start Time Stop Time Status Last Admin Dose Admin Diphtheria/ Pertussis/Tetanus Vacc (Adacel Inj) 0.5 ml ONCE ONCE IM. 04/06/17 14:15 04/06/17 14:16 DC 04/06/17 16:02 0.5 ML Procedure Location: Right ear. Total length: 1 cm Complexity: Simple Verbal consent was obtained after the risks and benefits were explained, including but not limited to bleeding, scarring, infection, pain, and bone/joint /nerve damage. At this time, the risks of the procedure are less than the risks of NOT performing the procedure. A time out was taken and the correct patient and site identified. The skin was prepped with betadine. The target area was anesthetized with 1 cc of 1% lidocaine without epinephrine. Copious irrigation was performed using normal saline. The skin was re-prepped with betadine and a sterile field set. The wound was explored for foreign bodies and none found. Examination revealed no injury to deep structures such as tendons, bone, or significant blood vessels. Debridement was not performed. The wound edges were approximated using 3, 6-0 simple interrupted nylon sutures. Hemostasis and excellent approximation was achieved. Antibacterial ointment and a sterile dressing applied. Detailed wound care instructions and signs and symptoms of infection reviewed with the patient. No complications and the patient tolerated the procedure well. ED Course 1352: The patient was evaluated in room B7. A complete history and physical exam was performed. 1415: Ordered Adacel Inj 0.5 ml IM, Buffered Lidocaine 1% Inj 20 ml INFIL. 1721: I reevaluated the patient. Discussed results and discharge instructions: the patient and family verbalized understanding and agreement. The patient is ready for discharge. Medical Decision I reviewed the patient's past medical history, medications, and the nursing notes as described above. Differential diagnoses: mechanical fall, unlikely syncope, fracture, soft tissue injury, laceration. Patient is an 89-year-old gentleman with past medical history of prior stroke with residual RUE paresis presents emergency Department after a mechanical fall where he lost his balance and fell into the bathtub and he is here self catty per history of present illness. Eyes LOC, nausea or vomiting. On exam the patient has a 1 cm left superior portion of the right auricle. Otherwise patient does have some ecchymosis to his right shoulder, forearm, and wrist. Range of motion passively is intact however considering the patient has baseline numbness in this arm exam is limited. X-rays negative for fracture. CT head and neck negative. Right radicular lack repaired with 3 sutures per procedure note. Findings and plan for follow-up d/w patient. Patient agreeable and d/c'd per discharge instructions. Head Trauma GCS Score: 15 Medication Reconcilliation Current Medication List: was personally reviewed by me Blood Pressure Screening Patient's blood pressure: Elevated blood pressure Blood pressure disposition: Referred to PCP Impression Primary Impression: Fall Additional Impression: Laceration of ear Scribe Attestation The scribe's documentation has been prepared under my direction and personally reviewed by me in its entirety. I confirm that the note above accurately reflects all work, treatment, procedures, and medical decision making performed by me. Departure Information Dispostion Home / Self-Care Referrals Werner Chin M.D. (PCP) Patient Instructions ED Laceration Facial Sutr Tape, [facility] Additional Instructions Please follow up with your primary care physician in the next 5-7 days for suture removal. Otherwise, your exam, Xrays, and CT scan did not show signs of an emergent condition at this time. Apply bacitracin ointment three times daily to your ear. Return to the emergency department for worsening symptoms as described in the accompanying instructions. Problem Qualifiers
[2017-04-06] MEDS ORDERED: DIPHTHERIA/TETANUS/PERTUSSIS 0.5 ML SYR/VIAL IM. ONE (14:15)
[2017-04-06] MEDS ORDERED: XYLOCAINE 1%/SOD BICARB 20 ML VIAL INFIL ONE (14:15)
--- NOTE | 2017-04-06 14:54 | DIAGNOSTIC IMAGING REPORT ---
CT SCAN OF THE BRAIN WITHOUT IV CONTRAST CLINICAL HISTORY: Headache. Fall. COMPARISON STUDY: CT of the brain dated 05/11/2009. TECHNIQUE: Unenhanced axial CT scan of the brain is performed from the vertex to the skull base. CT DOSE: 1088.69 mGy.cm FINDINGS: Brain parenchyma: There are age-related involutional changes noting moderate to advanced patchy subcortical and periventricular microangiopathic change. There is no hemorrhage, mass effect, or evidence of acute territorial ischemia by CT criteria. Linear calcifications in the right cerebellar hemisphere is again noted. Nava-white matter is preserved. No extra-axial fluid collection is seen. Ventricles, sulci, cisterns: Prominent secondary to involutional change. Intracranial vasculature: There is atherosclerotic calcification of the cavernous carotid and vertebral arteries. Calvarium: The skeletal structures are osteopenic. No depressed calvarial fracture is seen. Sinuses and mastoids: The visualized paranasal sinuses are clear. The mastoid air cells are well pneumatized. Orbits: The bony orbits are grossly intact. There are bilateral ocular lens implants. IMPRESSION: There is no hemorrhage, mass effect, or evidence of acute territorial ischemia by CT criteria. Electronically signed by: Rashel Mei M.D. 04/06/2017 2:53 PM Dictated Date/Time: 04/06/2017 2:47 PM
--- NOTE | 2017-04-06 15:02 | DIAGNOSTIC IMAGING REPORT ---
CT SCAN OF THE CERVICAL SPINE CLINICAL HISTORY: Fall. COMPARISON STUDY: No prior studies are available for comparison at the time of dictation. TECHNIQUE: CT scan of the cervical spine is performed from the skull base to the upper thoracic spine. Images are reviewed in the axial, sagittal, and coronal planes. IV contrast was not administered for this examination. A dose lowering technique was utilized adhering to the principles of ALARA. CT DOSE: Reported separately under the concurrently performed CT scan of the brain. FINDINGS: Skeletal structures: The skeletal structures are osteopenic. There is no evidence of fracture or subluxation involving the cervical spine. Vertebral body height and alignment are maintained. There is incomplete bony fusion of the posterior ring of C1, likely on a congenital basis. The odontoid process and lateral masses are intact. The atlantoaxial articulation is preserved noting advanced productive degenerative change. The spinous processes appear intact. Anterior osteophytes are seen throughout. There is advanced multilevel cervical spondylosis. Uncovertebral and facet arthropathy are seen at most levels. Intervertebral discs: There is moderate disc space narrowing at C5-C6 and C6-C7. Mild disc space narrowing is seen at the remaining cervical levels. Central canal: Posterior disc osteophyte complexes at C3-C4, C5-C6, and C6-C7 likely contributes to acquired compromise of the central canal. Soft tissues: The prevertebral and paraspinous soft tissues are within normal limits. Pacemaker leads are noted in the left axilla. There is atherosclerotic calcification of the carotid bulbs. Calvarium: The visualized calvarium at the skull base appears intact. Brain parenchyma: Partially visualized brain parenchyma the skull base is within normal limits noting age-related involutional change. Sinuses and mastoids: The visualized paranasal sinuses are clear. The mastoid air cells are well pneumatized. Lung apices: Apical scarring is observed. Partially imaged upper lobe lung parenchyma is otherwise clear as visualized. IMPRESSION: 1. There is no evidence of fracture or subluxation involving the cervical spine. 2. Osteopenia and spondylotic change as above. Electronically signed by: Rashle Mei M.D. 04/06/2017 3:00 PM Dictated Date/Time: 04/06/2017 2:55 PM
--- NOTE | 2017-04-06 15:35 | DIAGNOSTIC IMAGING REPORT ---
RIGHT SHOULDER MIN 2 VIEWS ROUTINE CLINICAL HISTORY: Right shoulder pain and swelling following fall. COMPARISON: None FINDINGS: Alignment of the right shoulder is anatomic. There is no acute fracture. There is moderate arthritis of the acromioclavicular and glenohumeral joints. There are right axillary surgical clips. Pacer leads and prosthetic cardiac valve are incidentally noted. IMPRESSION: No acute fracture or dislocation of the right shoulder. Electronically signed by: Gustavo Cash M.D. 04/06/2017 3:33 PM Dictated Date/Time: 04/06/2017 3:32 PM
--- NOTE | 2017-04-06 15:36 | DIAGNOSTIC IMAGING REPORT ---
RIGHT ELBOW 2 VIEWS, RIGHT FOREARM 2 VIEWS ROUTINE, RIGHT HUMERUS MIN 2 VIEWS ROUTINE HISTORY: 89 years-old Male FALL Right COMPARISON: None available TECHNIQUE: 3 views of the right elbow, 2 views the right forearm and 2 views of the right humerus FINDINGS: Humerus: Moderate glenohumeral and, clavicular osteoarthritis is noted. The bones are mildly demineralized. Surgical clips are seen within the right axilla. Imaged right lung farris are clear. No acute fracture or dislocation is identified. Elbow: Moderate degenerative spurring is noted about the elbow. Additional spurring is noted about the biceps tuberosity of the radius. There is no acute fracture or dislocation. No large joint effusion or radiopaque foreign body. Forearm: Radial head appears intact. There is no acute fracture or dislocation identified. The ulna also appears intact. Soft tissues are unremarkable. Degenerative changes are seen about the wrist and carpus. IMPRESSION: 1. No acute bony abnormality of the right humerus, elbow or forearm. 2. Degenerative changes about the shoulder, elbow and wrist. The above report was generated using voice recognition software. It may contain grammatical, syntax or spelling errors. Electronically signed by: Richard Pillai M.D. 04/06/2017 3:35 PM Dictated Date/Time: 04/06/2017 3:32 PM
[2017-04-06] MEDS ORDERED: POTA10CA28 PO (15:51)
[2017-04-06] MEDS ORDERED: TRAM-10 PO (15:51)
[2017-04-06] MEDS ORDERED: DOCU100C31 PO (15:51)
[2017-04-06] MEDS ORDERED: PRED-301 PO (15:51)
[2017-04-06] MEDS ORDERED: RXC/5 PO (15:51)
[2017-04-06] MEDS ORDERED: CHOL1000 PO (15:51)
[2017-04-06] MEDS ORDERED: ACET-1311 PO (15:51)
[2017-04-06 17:59] VITALS: BP 162/72; PULSE 76; O2SAT 96
== END 2017-04-06 18:01 | disposition home or self-care (01) ==
LOC: EDBD 13:28 → C.EDB 13:29
DX: S01.311A Laceration without foreign body of right ear, initial encounter (principal); I69.351 Hemiplegia and hemiparesis following cerebral infarction affecting right dominant side; W18.12XA Fall from or off toilet with subsequent striking against object, initial encounter; Y92.89 Other specified places as the place of occurrence of the external cause; Z79.82 Long term (current) use of aspirin; I25.10 Atherosclerotic heart disease of native coronary artery without angina pectoris; E11.9 Type 2 diabetes mellitus without complications; E78.5 Hyperlipidemia, unspecified; I10 Essential (primary) hypertension; M35.3 Polymyalgia rheumatica; Z87.01 Personal history of pneumonia (recurrent); Z85.828 Personal history of other malignant neoplasm of skin; Z95.0 Presence of cardiac pacemaker; Z95.2 Presence of prosthetic heart valve; Z79.899 Other long term (current) drug therapy; Z23 Encounter for immunization